=== PATIENT | female | born 2000 | race African-American/Black ===

== ENCOUNTER 2021-09-11 20:41 | Emergency (ER) | payer OTHER ==
[~2021-09-11] VITALS: Ht 170.2 cm; Wt 63.6 kg
[2021-09-11 20:52] VITALS: TEMP 98.7
[2021-09-11 21:44] LABS: BASO % 0.4 % (0.0-2.0); EOS % 0.6 % (0.0-4.0); GRAN # 3.9 K/mm3 (1.4-6.5); GRAN % 57.9 % (42.2-75.2); HEMATOCRIT 41.7 % (37.0-47.0); HEMOGLOBIN 14.4 g/dl (12.5-16.0); LYMPH # 2.3 K/mm3 (1.2-3.4); LYMPH % 33.3 % (20.0-51.0); MEAN CELL VOLUME 92 fl (80.0-100.0); MEAN CORPUSCULAR HEMOGLOBIN 32 pg (27-31); MEAN CORPUSCULAR HGB CONC 35 g/dl (33.0-37.0); MEAN PLATELET VOLUME 9.2 fl (7.4-10.4); MONO # 0.5 K/mm3 (0.1-0.6); MONO % 7.7 % (1.7-9.3); PLATELET COUNT 349 K/mm3 (130-400); RED BLOOD COUNT 4.52 M/mm3 (4.10-5.30); REDCELL DISTRIBUTION WIDTH-CV 11.9 % (11.5-14.5)
[2021-09-11 22:09] LABS: ALBUMIN 4.6 gm/dL (3.5-5.0); BILIRUBIN,TOTAL 0.9 mg/dL (0.2-1.2); C-REACTIVE PROTEIN 0.02 mg/dL (0.00-0.50); CALCIUM 9.7 mg/dL (8.4-10.2); CREATININE, serum 0.89 mg/dL (0.57-1.11); POTASSIUM 3.8 mmol/L (3.5-4.5); TOTAL PROTEIN 8.1 gm/dL (6.2-8.1)
[2021-09-11 22:57] VITALS: BP 122/80; PULSE 98
== END 2021-09-12 00:39 | disposition home or self-care (01) ==
LOC: COL.ER 20:41
PROVIDERS: Emergency Medicine
DX: R10.30 Lower abdominal pain, unspecified (principal); R11.2 Nausea with vomiting, unspecified; R19.7 Diarrhea, unspecified; Z28.310 Unvaccinated for COVID-19
CPT/HCPCS: J1885; J2550; J7030